=== PATIENT | male | born 1960 | race African-American/Black ===

== ENCOUNTER 2023-06-05 13:21 | Inpatient (IN) | payer OTHER ==
[2023-06-05 14:24] VITALS: BMI 20.3
[2023-06-05] MEDS ORDERED: ACETAMINOPHEN 325 MG TABLET (FP) PO PRN (15:21)
[2023-06-05] MEDS ORDERED: P-EPHED 60MG/TRIPROLIDI 2.5MG TABLET PO PRN (15:21)
[2023-06-05] MEDS ORDERED: BENZOCAINE/MENTHOL (CHLORASEPTIC ) LOZENGE MM PRN (15:21)
[2023-06-05] MEDS ORDERED: LOPERAMIDE HCL 2 MG CAPSULE PO PRN (15:21)
[2023-06-05] MEDS ORDERED: MAGNESIUM HYDROX 2400MG/30ML ORAL SUSPENSION 30 ML CUP PO PRN (15:21)
[2023-06-05] MEDS ORDERED: IBUPROFEN 600 MG TABLET (FP) PO PRN (15:21)
[2023-06-05] MEDS ORDERED: guaiFENesin 600 MG TABLET.ER (FP) PO PRN (15:21)
[2023-06-05] MEDS ORDERED: NALOXONE HCL (KLOXXADO) 8 MG SPRAY NS PRN (15:21)
[2023-06-05] MEDS ORDERED: BENZONATATE 200 MG CAPSULE PO PRN (15:21)
[2023-06-05] MEDS ORDERED: IBUPROFEN 400 MG TABLET (FP) PO PRN (15:21)
[2023-06-05] MEDS ORDERED: MAG HYDROX/AL HYDROX/SIMETH 30 ML UNIT-DOSE CUP PO PRN (15:21)
[2023-06-05] MEDS ORDERED: NALOXONE HCL 0.4 MG/ML VIAL IM PRN (15:21)
[2023-06-05] MEDS: TUBERCULIN PPD 5 TU/0.1ML SYRINGE (IN PATIENT USE ONLY) ID ONE (19:34)
[2023-06-05] MEDS: MELATONIN 5 MG TABLETS PO SCH (21:25)
[2023-06-05] MEDS: THIAMINE HCL 100 MG TABLET (FP) PO SCH (21:25)
[2023-06-05] MEDS: ATORVASTATIN CA 10 MG TABLET (FP) PO SCH (21:59)
[2023-06-05] MEDS: RIVAROXABAN 2.5 MG TABLET PO SCH (21:59)
[2023-06-06] MEDS ORDERED: methaDONE HCL 10 MG TABLET PO SCH (08:30)
[2023-06-06] MEDS ORDERED: methaDONE 80 MG, methaDONE 10 MG PO ONE (08:45)
[2023-06-06] MEDS: methaDONE 80 MG, methaDONE 10 MG PO ONE (10:08)
[2023-06-06] MEDS: LISINOPRIL 20 MG TABLET PO SCH (10:09)
[2023-06-06] MEDS: PRENATAL VITAMINS W/ FOLIC ACID TABLET (FP) PO SCH (10:09)
[2023-06-06] MEDS: HYDROCHLOROTHIAZIDE 25 MG TABLET (FP) PO SCH (10:09)
[2023-06-06 12:45] LABS: HEMATOCRIT 37.8 % (35.4-49); HEMOGLOBIN 13.2 GM/dL (11.7-16.9); MCH 31.6 pg (25.7-33.7); MCHC 34.8 g/dl (32.0-35.9); MEAN CELL VOLUME 90.6 fl (80-96); MEAN PLT VOLUME 8.6 fl (7.5-11.1); PLATELET COUNT 139 10^3/uL (134-434); RBC 4.18 M/mm3 (4.00-5.60); RDW 14.2 % (11.9-15.9); WHITE BLOOD COUNT 4.4 K/mm3 (4.0-10.0)
[2023-06-06 13:17] LABS: POTASSIUM 3.7 mmol/L (3.5-5.1)
[2023-06-06 13:20] LABS: CALCIUM 9.2 mg/dL (8.5-10.1)
[2023-06-06 13:21] LABS: ALBUMIN 3.6 g/dl (3.4-5.0); BLOOD UREA NITROGEN 10.1 mg/dL (7-18)
[2023-06-06 13:24] LABS: CREATININE 0.8 mg/dL (0.55-1.3)
[2023-06-06 13:25] LABS: TOT PROT 7.3 g/dl (6.4-8.2)
[2023-06-06 13:30] LABS: BILIRUBIN,TOTAL 0.5 mg/dL (0.2-1)
[2023-06-06 17:55] LABS: EPI CELLS >36 /uL (0-25.1); HYALINE CASTS 4 /uL (0-3.1); URINE APPEARANCE CLEAR; URINE BACTERIA 397 /uL (0-1359); URINE BILIRUBIN 1+ (NEGATIVE); URINE COLOR DK YELLOW; URINE GLUCOSE (UA) NEGATIVE (NEGATIVE); URINE KETONE NEGATIVE (NEGATIVE); URINE LEUK ESTERASE TRACE (NEGATIVE); URINE NITRITE NEGATIVE (NEGATIVE); URINE PROTEIN NEGATIVE (NEGATIVE); URINE RBC 38 /uL (0-23.9); URINE WBC 54 /uL (0-25.8)
[2023-06-07] MEDS: methaDONE 80 MG, methaDONE 10 MG PO SCH (06:30)
[2023-06-11] MEDS: POLYETHYLENE GLYCOL (HEALTHYLAX) 3350 17 GM PACKET PO PRN (15:58)
[2023-06-14 15:36] LABS: COCAINE, UR NEGATIVE (NEGATIVE); OPIATES, URI NEGATIVE (NEGATIVE); URINE AMPHETAMINES NEGATIVE (NEGATIVE); URINE BARBITURATES NEGATIVE (NEGATIVE)
[2023-06-14 15:37] LABS: PHENCYCLIDINE,URINE NEGATIVE (NEGATIVE)
[2023-06-14 15:40] LABS: METHADONE, UR POSITIVE (NEGATIVE); URINE BENZODIAZEPINES NEGATIVE (NEGATIVE)
[2023-06-16 06:38] VITALS: RESP 18; TEMP 97
[2023-06-16 09:51] VITALS: BP 152/98; PULSE 52
== END 2023-06-16 09:30 | disposition home or self-care (01) | DRG 772 ==
LOC: YASAS 13:21 → Y3E 18:28
PROVIDERS: ADMIT Allergy & Immunology; ATTEND Psychiatry & Neurology Pain Medicine
PROC: HZ42ZZZ Group Counseling for Substance Abuse Treatment, Cognitive-Behavioral (ICD-10-PCS; principal; 2023-06-05)
DX: F14.20 Cocaine dependence, uncomplicated (principal); F11.20 Opioid dependence, uncomplicated; F17.210 Nicotine dependence, cigarettes, uncomplicated; I10 Essential (primary) hypertension; Z86.718 Personal history of other venous thrombosis and embolism; Z79.01 Long term (current) use of anticoagulants; Z86.73 Personal history of transient ischemic attack (TIA), and cerebral infarction without residual deficits
CPT/HCPCS: 36415; 80053; 80305; 80307; 81003; 85027; 86780; 87635; 93005; 93010